=== PATIENT | male | born 1945 | race Caucasian/White ===

== ENCOUNTER 2017-12-08 10:43 | Emergency (ER) | payer MEDICARE, SELFPAY ==
--- NOTE | 2017-12-08 11:14 | EDM.PDOC ---
ED HPI GENERAL MEDICAL PROBLEM - General Chief Complaint: Gastrointestinal Problem Stated Complaint: throwing up blood, black stool Time Seen by Provider: 12/08/17 11:00 Source of Information: Reports: Patient, Family History Limitations: Reports: Other (ETOH abuse/dependency) - History of Present Illness INITIAL COMMENTS - FREE TEXT/NARRATIVE: Patient brought in to ER by niece for complaint of coffee ground emesis and melena. Present since yesterday. Feels a bit shaky. No specific pain complaints. Emesis x1 yesterday, and once prior to coming to ER. Describes stools as "black ". Not eating for the last few days but still drinking water. [facility] Treated for HTN. No other complaints during ROS. Patient frail. Smoked for february years. Currently is not smoking. Says he drinks around 6-7 beers daily, Yoli Light is preferred beer. Lives alone in apartment. - Related Data Allergies Allergy/AdvReac Type Severity Reaction Status Date / Time No Known Allergies Allergy Verified 12/08/17 10:49 Home Meds: Home Meds Lisinopril 2.5 mg PO DAILY 12/08/17 [History] Spironolactone [Aldactone] 25 mg PO DAILY 12/08/17 [History] Past Medical History Cardiovascular History: Reports: Hypertension Psychiatric History: Reports: Addiction (ETOH) Social & Family History - Tobacco Use Smoking Status *Q: Former Smoker Years of Tobacco use: 40 Packs/Tins Daily: 1 Used Tobacco, but Quit: Yes Month Tobacco Last Used: 1 Second Hand Smoke Exposure: No - Caffeine Use Caffeine Use: Reports: None - Alcohol Use Days Per Week of Alcohol Use: 7 Number of Drinks Per Day: 5 Total Drinks Per Week: 35 Date of Last Drink: 12/07/17 - Recreational Drug Use Recreational Drug Use: No ED ROS GENERAL - Review of Systems Review Of Systems: See Below Constitutional: Reports: Weakness, Decreased Appetite, Weight Loss (5 pounds recently). Denies: Fever, Chills, Diaphoresis HEENT: Reports: No Symptoms Respiratory: Reports: No Symptoms. Denies: Shortness of Breath, Hemoptysis Cardiovascular: Reports: No Symptoms. Denies: Lightheadedness, Palpitations, Syncope GI/Abdominal: Reports: Black Stool, Decreased Appetite, Hematemesis, Nausea, Vomiting. Denies: Abdominal Pain, Constipation, Diarrhea, Difficulty Swallowing , Distension : Reports: No Symptoms Musculoskeletal: Reports: No Symptoms (no acute changes) Skin: Reports: No Symptoms Neurological: Reports: Weakness (generalized) Psychiatric: Reports: No Symptoms ED EXAM, GI/ABD - Physical Exam Exam: See Below Exam Limited By: No Limitations General Appearance: Alert, WD/WN, Thin, Other (shaky) Eyes: Bilateral: EOMI Ears: Normal External Exam, Normal Canal Nose: No: No Blood, Nasal Tenderness, Nasal Deformity, Nasal Swelling, Nasal Flaring Throat/Mouth: Normal Lips, Normal Voice, No Airway Compromise Head: Atraumatic, Normocephalic Neck: Supple, Non-Tender Respiratory/Chest: No Respiratory Distress, Lungs Clear, Normal Breath Sounds, No Accessory Muscle Use, Chest Non-Tender Cardiovascular: Normal Peripheral Pulses, Regular Rate, Rhythm, No Edema, No Murmur GI/Abdominal Exam: Normal Bowel Sounds, Soft, Tender (mild, epigastric, RUQ), Hepatomegaly (suspected). No: Distended, Guarding, Rigid, Rebound (Male) Exam: Deferred Rectal (Males) Exam: Bloody Stool (maroon color) Back Exam: No: CVA Tenderness (L), CVA Tenderness (R), Muscle Spasm, Paraspinal Tenderness, Vertebral Tenderness Extremities: Non-Tender, No Pedal Edema, Normal Capillary Refill Neurological: Alert, Oriented, Slow to Respond, Other (tone/strength symmetric, weak) Psychiatric: Normal Affect, Normal Mood Skin Exam: Warm, Dry, Intact Course - Vital Signs Last Recorded V/S: Last Vital Signs Temp 36.1 C 12/08/17 10:43 Pulse 92 12/08/17 13:48 Resp 15 12/08/17 13:48 BP 126/71 12/08/17 13:48 Pulse Ox 96 12/08/17 13:48 - Orders/Labs/Meds Orders: Active Orders 24 hr Category Date Time Status Dextrose 5%-0.9% NaCl [Dextrose 5%-Normal Saline] 1,000 Med 12/08/17 11:45 Active ml IV ASDIRECTED Sodium Chloride 0.9% [Saline Flush] Med 12/08/17 11:11 Active 10 ml FLUSH ASDIRECTED PRN Saline Lock Insert [OM.PC] Stat Oth 12/08/17 11:11 Ordered Medication Orders Dextrose/Sodium Chloride (Dextrose 5%-Normal Saline) 1,000 mls @ 125 mls/hr IV ASDIRECTED DALE Last Admin: 12/08/17 12:12 Dose: 125 mls/hr Infusion: 12/08/17 12:12 Dose: 125 mls/hr Admin: 12/08/17 11:45 Dose: 125 mls/hr Sodium Chloride (Saline Flush) 10 ml FLUSH ASDIRECTED PRN PRN Reason: Keep Vein Open Last Admin: 12/08/17 12:13 Dose: 10 ml Admin: 12/08/17 11:36 Dose: 10 ml Labs: Laboratory Tests 12/08/17 12/08/17 12/08/17 Range/Units 11:06 11:06 11:06 WBC 4.1 (4.0-10.2) K/uL RBC 2.99 L (4.33-5.41) M/uL Hgb 10.4 L (13.1-16.8) g/dL Hct 30.0 L (39.0-49.0) % MCV 100.3 H (84.0-98.0) fL MCH 34.8 H (28.2-33.3) pg MCHC 34.7 (31.7-36.0) g/dL RDW 13.5 (11.2-14.1) % Plt Count 79 L (150-350) K/uL Neut % (Auto) 85.5 H (45.0-80.0) % Lymph % (Auto) 7.3 L (10.0-50.0) % [place] % (Auto) 7.0 (2.0-14.0) % Eos % (Auto) 0.0 (0.0-5.0) % Baso % (Auto) 0.2 (0.0-2.0) % Neut # (Auto) 3.52 (1.40-7.00) K/uL Lymph # (Auto) 0.30 L (0.50-3.50) K/uL [place] # (Auto) 0.29 (0.00-1.00) K/uL Eos # (Auto) 0.00 (0.00-0.50) K/uL Baso # (Auto) 0.01 (0.00-0.20) K/uL PT 12.1 H (9.8-11.7) SEC INR 1.1 Sodium 134 L (136-145) mmol/L Potassium 4.1 (3.5-5.1) mmol/L Chloride 94 L (98-107) mmol/L Carbon Dioxide 24.0 (21.0-32.0) mmol/L BUN 18 (7-18) mg/dL Creatinine 0.68 (0.51-1.17) mg/dL Est Cr Clr Drug Dosing 95.89 mL/min Estimated GFR (MDRD) > 60 mL/min Glucose 143 H (74-106) mg/dL Calcium 8.8 (8.5-10.1) mg/dL Total Bilirubin 1.0 (0.2-1.0) mg/dL AST 105 H (15-37) U/L ALT 61 (12-78) U/L Alkaline Phosphatase 184 H (46-116) IU/L Total Protein 7.5 (6.4-8.2) g/dL Albumin 3.6 (3.4-5.0) g/dL Ethyl Alcohol (0.000-0.080) g/dL 12/08/17 Range/Units 11:06 WBC (4.0-10.2) K/uL RBC (4.33-5.41) M/uL Hgb (13.1-16.8) g/dL Hct (39.0-49.0) % MCV (84.0-98.0) fL MCH (28.2-33.3) pg MCHC (31.7-36.0) g/dL RDW (11.2-14.1) % Plt Count (150-350) K/uL Neut % (Auto) (45.0-80.0) % Lymph % (Auto) (10.0-50.0) % [place] % (Auto) (2.0-14.0) % Eos % (Auto) (0.0-5.0) % Baso % (Auto) (0.0-2.0) % Neut # (Auto) (1.40-7.00) K/uL Lymph # (Auto) (0.50-3.50) K/uL [place] # (Auto) (0.00-1.00) K/uL Eos # (Auto) (0.00-0.50) K/uL Baso # (Auto) (0.00-0.20) K/uL PT (9.8-11.7) SEC INR Sodium (136-145) mmol/L Potassium (3.5-5.1) mmol/L Chloride (98-107) mmol/L Carbon Dioxide (21.0-32.0) mmol/L BUN (7-18) mg/dL Creatinine (0.51-1.17) mg/dL Est Cr Clr Drug Dosing mL/min Estimated GFR (MDRD) mL/min Glucose (74-106) mg/dL Calcium (8.5-10.1) mg/dL Total Bilirubin (0.2-1.0) mg/dL AST (15-37) U/L ALT (12-78) U/L Alkaline Phosphatase (46-116) IU/L Total Protein (6.4-8.2) g/dL Albumin (3.4-5.0) g/dL Ethyl Alcohol 0.012 (0.000-0.080) g/dL Meds: Medications Generic Name Dose Route Start Last Admin Trade Name Freq PRN Reason Stop Dose Admin Dextrose/Sodium Chloride 1,000 mls @ 125 mls/hr 12/08/17 11:45 12/08/17 12:12 Dextrose 5%-Normal Saline IV 125 mls/hr ASDIRECTED DALE Administration Sodium Chloride 10 ml 12/08/17 11:11 12/08/17 12:13 Saline Flush FLUSH 10 ml ASDIRECTED PRN Administration Keep Vein Open Discontinued Medications Generic Name Dose Route Start Last Admin Trade Name Freq PRN Reason Stop Dose Admin Sodium Chloride 1,000 mls @ 125 mls/hr 12/08/17 11:26 12/08/17 11:52 Normal Saline IV 12/08/17 19:25 Not Given .BOLUS ONE Thiamine HCl 100 mg/ Sodium 101 mls @ 202 mls/hr 12/08/17 11:27 12/08/17 11: 45 Chloride IV 12/08/17 11:28 202 mls/hr ONETIME ONE Administration Lorazepam 1 mg 12/08/17 12:49 12/08/17 13:41 Ativan PO 12/08/17 12:50 1 mg ONETIME ONE Administration Pantoprazole Sodium 80 mg 12/08/17 11:27 12/08/17 11:36 Protonix Iv IVPUSH 12/08/17 11:28 80 mg .BOLUS ONE Administration - Re-Assessments/Exams Free Text/Narrative Re-Assessment/Exam: 12/08/17 13:06 Patient had one witness emesis in ER shortly after arrival. Small in amount. Coffee ground appearance. One bowel movement around same time. Obviously maroon in color. Hgb 10.4 [id number] Glu 143 Alk phos 184 0.012 ETOH IV access obtained. Fluids initiated. Protonix given. Niece worries that patient may have DTs when not using ETOH, thus Atival PO given. Additionally Thiamine ordered. [facility] [place] Morifn. This was due to the acuity/nature of the illness, GI bleed. Patient accepted by [facility] (). Transfered by ground ambulance to their facility for further care. Remained stable in ER. Departure - Departure Time of Disposition: 14:20 Disposition: DC/Tfer to Acute Hospital 02 Condition: Fair Clinical Impression: Gastrointestinal hemorrhage with hematemesis, Bloody stool EtOH dependence Qualifiers: Substance use status: unspecified alcohol-induced disorder Qualified Code(s): F10.29 - Alcohol dependence with unspecified alcohol-induced disorder - Discharge Information Referrals: PCP,None [Primary Care Provider] - Forms: ED Department Discharge Additional Instructions: Direct transfer to [facility] - My Orders Last 24 Hours: My Active Orders 12/08/17 11:11 Sodium Chloride 0.9% [Saline Flush] 10 ml FLUSH ASDIRECTED PRN Saline Lock Insert [OM.PC] Stat 12/08/17 11:45 Dextrose 5%-0.9% NaCl [Dextrose 5%-Normal Saline] 1,000 ml IV ASDIRECTED - Assessment/Plan Last 24 Hours: My Active Orders 12/08/17 11:11 Sodium Chloride 0.9% [Saline Flush] 10 ml FLUSH ASDIRECTED PRN Saline Lock Insert [OM.PC] Stat 12/08/17 11:45 Dextrose 5%-0.9% NaCl [Dextrose 5%-Normal Saline] 1,000 ml IV ASDIRECTED
[2017-12-08] MEDS ORDERED: Sodium Chloride 0.9% 1,000 ML IV ONE (11:26)
[2017-12-08] MEDS ORDERED: Pantoprazole 40 MG Vial IVPUSH ONE (11:27)
[2017-12-08] MEDS ORDERED: Thiamine 100 MG in Sodium Chloride 0.9% 100 ML IV ONE (11:27)
[2017-12-08 11:29] LABS: CHLORIDE,CL 94 mmol/L (98-107); SODIUM,NA 134 mmol/L (136-145)
[2017-12-08] MEDS: Sodium Chloride 0.9% 10 ML Syringe FLUSH PRN ×2 (11:36→12:13)
[2017-12-08] MEDS: Dextrose 5%-0.9% NaCl 1,000 ML IV SCH ×2 (11:45→12:12)
[2017-12-08] MEDS ORDERED: LORazepam 1 MG Tab PO ONE (12:49)
== END 2017-12-08 14:10 ==
LOC: LL.ED 10:43
DX: K92.2 Gastrointestinal hemorrhage, unspecified (principal); F10.29 Alcohol dependence with unspecified alcohol-induced disorder; I10 Essential (primary) hypertension; Z79.899 Other long term (current) drug therapy; Z87.891 Personal history of nicotine dependence; Y90.0 Blood alcohol level of less than 20 mg/100 ml
CPT/HCPCS: 36415; 80053; 85025; 85610; 96361; 96365; 96375; 99285; A9270; C9113; G0480; J3411; J7042; J7050